=== PATIENT | male | born 1975 | race Caucasian/White ===

== ENCOUNTER 2016-06-17 08:29 | Emergency (ER) | payer OTHER ==
[2016-06-17] MEDS ORDERED: IOPAMIDOL 300 (61%) 150 ML VIAL IV ONE (08:30)
[2016-06-17] MEDS ORDERED: PREDNISONE 20 MG TABLET ONE (09:21)
[2016-06-17 09:37] LABS: ABSOLUTE NEUTROPHIL COUNT 5.4 K/mm3 (1.8-7.7); BASO # 0.1 K/mm3 (0.0-0.2); BASO % 1.3 % (0.2-1.0); EOS # 0.2 (0.0-0.5); EOS % 2.8 % (0.9-2.9); HEMATOCRIT 46.2 % (32.0-52.0); HEMOGLOBIN 15.4 gm/l (14.0-18.0); IMM NEUT # 0.1 K/mm3 (0-0.2); IMM NEUT% 0.6 % (0-1); LYMPH # 1.2 (1.0-4.8); LYMPH % 15.7 % (15-45); MEAN CELL VOLUME 87.3 fl (80.0-94.0); MEAN CORPUSCULAR HEMOGLOBIN 29.1 pg (27.0-31.0); MEAN CORPUSCULAR HGB CONC 33.3 g/dl (33.0-37.0); MEAN PLATELET VOLUME 9.2 fl (7.4-10.4); MONO # 0.9 (0.0-0.8); MONO % 11.8 % (4-12); NEUT % 67.8 % (43-75); PLATELET COUNT 311 K/mm3 (130-400); RED CELL DISTRIBUTION WIDTH 12.4 % (11.5-14.5)
[2016-06-17 09:59] LABS: CALCIUM 9.4 mg/dL (8.6-10.3)
--- NOTE | 2016-06-17 10:01 | CT ---
ABD/PELVIS W/ CON COMPARISON: CT abdomen with contrast 11/21/2010 HISTORY: 41-year-old male with mid/right back pain. Medical history: Inguinal hernia, chronic back pain. Surgical history: Abdomen fatty tumors removed, appendectomy, meniscectomy. Technique: No oral contrast. Intravenous injection 125 mL Isovue 300. Using a [employer] [address] scanner, images were obtained from the diaphragm to the floor the pelvis. An automated dose reduction technique was used to minimize patient radiation dose. Dose information: CTDIvol (mGy): 27.40 DLP(mGycm): 1448.30 FINDINGS: Lung bases: Normal. Inferior mediastinum and heart: Normal. Liver: Normal. Gallbladder:Normal. Bile ducts: Normal. Pancreas: Normal. Spleen: Normal. Adrenal glands: Normal. Kidneys: Normal. Ureters: Normal Urinary bladder: Normal. Prostate gland and seminal vesicles: Normal. Blood vessels: Normal Lymph nodes: Normal Stomach: Normal Duodenum: Normal Small intestine: Normal Appendix: Appendectomy. Colon: Normal Abdominal wall and supporting musculature: 5.5 x 2.2 cm left inguinal hernia containing fat. Bones: Minimal degenerative changes in the spine. No disc herniations. IMPRESSION: 1. No acute finding to explain the patient's mid and right-sided back pain. 2. Incidental findings include 5.5 x 2.2 cm left inguinal hernia containing fat, minimal degenerative changes in the spine, and appendectomy. The report was sent to the emergency department [employer] medical record system 06/17/2016 at 09:58
== END 2016-06-17 11:58 | disposition home or self-care (01) ==
LOC: ED 08:29
DX: M54.41 Lumbago with sciatica, right side (principal)
CPT/HCPCS: 85025; 80048; 74177; 99284 ×2; J7512; Q9967

== ENCOUNTER 2016-07-23 07:13 | Day surgery (SDC) | payer OTHER ==
[2016-07-23] MEDS ORDERED: MIDAZOLAM HCL 5 MG/5 ML VIAL ONE (07:22)
[2016-07-23] MEDS ORDERED: FENTANYL 250 MCG/5 ML AMP ONE (07:23)
[2016-07-23] MEDS ORDERED: LIDOCAINE Viscous 2% 15 ML UDCUP ONE (07:23)
[2016-07-23] MEDS ORDERED: FENTANYL 250 MCG/5 ML AMP IV PRN (07:38)
[2016-07-23] MEDS ORDERED: LIDOCAINE Viscous 2% 15 ML UDCUP PO PRN (07:38)
[2016-07-23] MEDS ORDERED: MIDAZOLAM HCL 5 MG/5 ML VIAL IV PRN (07:38)
[2016-07-23] MEDS ORDERED: LACTATED RINGERS 1,000 ML IV SCH (07:45)
[2016-07-23 12:34] LABS: HELICOBACTER PYLORII DETECTION NEGATIVE (NEGATIVE)
--- NOTE | 2016-07-25 10:57 | SURGPATH ---
[facility] [address] [place] [id number] Patient Name: FABIANA LOZADA MR#: [id number] : 1975 Gender: M Specimen #: [id number] Collected: 07/23/2016 Received: 07/24/2016 Reported: 07/25/2016 Submitting Phys: GRACE WATSON Copy To Phys: [facility] JARETH CARBAJAL Clinical History / Pre-Operative Diagnosis: DYSPHAGIA; HEARTBURN; RULE OUT GASTRITIS AND ESOPHAGITIS Specimen Source / Surgical Procedure Performed: #1-ANTRAL BIOPSY; #2-ESOPHAGEAL BIOPSY AT 38 CM Interpretation: 1. ANTRUM, BIOPSY: - NO PATHOLOGIC ABNORMALITY 2. ESOPHAGUS AT 38 CM, BIOPSY: - REFLUX ESOPHAGITIS - NEGATIVE FOR INTESTINAL METAPLASIA Electronically Signed Out Abdoul James M.D. Gross Description: #1 The specimen is received in a formalin filled container labeled with the patient's name and "antral biopsy". Two lemus biopsies are 0.4 and 0.5 cm. Totally embedded in cassette #1. #2 The specimen is received in a formalin filled container labeled with the patient's name and "esophageal biopsy at 38 cm". Two yates-lemus biopsies are each 0.5 cm. Totally embedded in cassette #2. Samuel Sanders PFatoumata. Microscopic Description: Microscopic performed. 1: 46270 2: 75820 K21.0
== END 2016-07-23 11:17 | disposition home or self-care (01) ==
LOC: SDC 07:13
PROVIDERS: ATTEND Internal Medicine Gastroenterology
PROC: 0D748ZZ Dilation of Esophagogastric Junction, Via Natural or Artificial Opening Endoscopic (ICD-10-PCS; principal; 2016-07-23)
PROC: 0DB68ZX Excision of Stomach, Via Natural or Artificial Opening Endoscopic, Diagnostic (ICD-10-PCS; 2016-07-23)
PROC: 0DB48ZX Excision of Esophagogastric Junction, Via Natural or Artificial Opening Endoscopic, Diagnostic (ICD-10-PCS; 2016-07-23)
DX: K22.2 Esophageal obstruction (principal); K21.0 Gastro-esophageal reflux disease with esophagitis; K29.70 Gastritis, unspecified, without bleeding; K29.80 Duodenitis without bleeding; I10 Essential (primary) hypertension; Z88.0 Allergy status to penicillin; Z88.8 Allergy status to other drugs, medicaments and biological substances
CPT/HCPCS: 43249; 43239; 87081; J3010; J2250; A9270

== ENCOUNTER 2016-08-27 07:15 | Day surgery (SDC) | payer OTHER ==
[~2016-08-27 07:15] MED LIST: IV START KIT ONE; LACTATED RINGERS 1,000 ML ONE
[2016-08-27] MEDS ORDERED: LIDOCAINE 2% (MULTI DOSE) 10 ML VIAL ONE (08:11)
[2016-08-27] MEDS ORDERED: MIDAZOLAM HCL 1 MG/ML 2ML VIAL ONE (08:11)
[2016-08-27] MEDS ORDERED: FENTANYL 250 MCG/5 ML AMP ONE (08:11)
[2016-08-27] MEDS ORDERED: PROPOFOL 20 ML IV ONE (08:11)
[2016-08-27] MEDS ORDERED: CEFAZOLIN SODIUM 1,000 MG VIAL ONE (09:19)
[2016-08-27] MEDS ORDERED: BUPIVACAINE 0.5% (PRES FREE) 30 ML VIAL ONE (09:19)
[2016-08-27] MEDS ORDERED: SODIUM CHLORIDE 0.9% FLUSH 10 ML ONE (09:19)
[2016-08-27] MEDS ORDERED: CLINDAMYCIN 900 MG PREMIX 50 ML IV ONE (09:22)
[2016-08-27] MEDS ORDERED: MEPERIDINE 25 MG/ML SYRINGE IV PRN (10:05)
[2016-08-27] MEDS ORDERED: PROMETHAZINE HCL 25 MG/ML VIAL IM PRN (10:05)
[2016-08-27] MEDS ORDERED: FENTANYL 100 MCG/2 ML VIAL IV PRN (10:05)
[2016-08-27] MEDS ORDERED: NALOXONE HCL 0.4 MG/ML VIAL IV PRN (10:05)
[2016-08-27] MEDS ORDERED: ONDANSETRON 4 MG/2ML 2 ML VIAL IV PRN ×2 (10:05→12:20)
[2016-08-27] MEDS ORDERED: ATROPINE SULFATE 0.4 MG/1 ML VIAL IV PRN (10:05)
[2016-08-27] MEDS ORDERED: HYDRALAZINE HCL 20 MG/1 ML VIAL IV PRN (10:05)
[2016-08-27] MEDS ORDERED: HYDROMORPHONE HCL 1 MG/ML SYRINGE IV PRN (10:05)
[2016-08-27] MEDS ORDERED: LABETALOL HCL 5 MG/ML 20ML VIAL IV PRN (10:05)
[2016-08-27] MEDS ORDERED: DEXAMETHASONE SOD PHOS 4 MG/1 ML VIAL ONE (10:07)
[2016-08-27] MEDS ORDERED: LACTATED RINGERS 1,000 ML IV SCH (10:15)
[2016-08-27] MEDS ORDERED: KETOROLAC TROMETHAMINE 30 MG/ML 1 ML VIAL ONE ×2 (10:47→10:48)
--- NOTE | 2016-08-27 12:15 | OP ---
David Page [id number] DATE OF PROCEDURE: 08/27/2016 PREOPERATIVE DIAGNOSIS: Left inguinal hernia with obstruction. POSTOPERATIVE DIAGNOSIS: Left inguinal hernia. with obstruction. PROCEDURE: Left inguinal hernia repair with mesh plug times two and patch. SURGEON: Phill Dale MD. LEARNING DESIGN SPECIALIST: Janene. ANESTHESIA: Kobzeff, General. INDICATION: This is a 41-year-old male who presents for elective repair of a left inguinal hernia. He has difficulty defecating. He is able to defecate once he reduces his hernia indicating obstruction caused by the hernia. DESCRIPTION: With informed consent he was taken to the operating room where he was laid supine on the operating room table. General endotracheal anesthesia was administered. The left groin was prepped and draped in the usual sterile fashion. Local anesthetic was administered in the skin and subcutaneous tissues. Incision was made. Electrocautery was used to divide the subcutaneous fat, this was quite deep. We put in a self retaining Weitlaner retractor. The external oblique was opened with a knife and Metzenbaum scissors in a fibrous splitting technique. Cord structures were encircled at the level of the pubic tubercle with a [place] drain. The ilioinguinal nerve was identified, carefully dissected free, and retracted inferiorly. There was a large cord lipoma, this was dissected free to the level of the internal ring, it was clamped, excised, and tied off with 2-0 Vicryl stick tie. I did not clearly see an indirect sac. There appeared to be a generalized direct defect present, this was scored with electrocautery getting into the preperitoneal plane. An extra large mesh plug was then placed, this was secured circumferentially with a 2-0 Vicryl. It did seem to still be weak superior to the cord. I put in a medium mesh plug in this place. The two plugs were secured together with Vicryl. This was also secured to the internal oblique with some 2-0 Vicryl. A flat piece of mesh was then placed across the floor of the canal. The medial aspect overlapped the pubic tubercle. A slit was cut laterally, this was placed around the cord structures and secured laterally with 2-0 Vicryl. This was placed beneath the external oblique. The wound was irrigated. We appeared to have adequate hemostasis. The external oblique was reapproximated with a running 2-0 Vicryl. Some additional local anesthetic was administered below the external oblique. Subcutaneous tissues were brought together with 3-0 Vicryl and the skin was closed with a running subcuticular 4-0 Monocryl. Mastisol and Steri-strips were placed. Sterile dressings were applied. He tolerated the procedure and was taken to the recovery room in stable condition. Note was made that needle, instrument, and lap counts were reported as correct at the time of closure. JOB: [id number] CC: Dr. Nancy Thomas
[2016-08-27] MEDS ORDERED: EPHEDRINE SULFATE UD SYR 25 MG 25 MG/5 ML SYRINGE IV ONE (12:16)
[2016-08-27] MEDS ORDERED: KETOROLAC TROMETHAMINE 30 MG/ML 1 ML VIAL IV PRN (12:20)
[2016-08-27] MEDS ORDERED: MORPHINE SULFATE 2 MG/ML SYRINGE IV PRN (12:20)
[2016-08-27] MEDS ORDERED: ACETAMINOPHEN 325 MG TABLET PO PRN (12:20)
[2016-08-27] MEDS ORDERED: OXYCODONE HCL 5 MG TABLET PO PRN (12:20)
[2016-08-27] MEDS ORDERED: OXYCODONE HCL 5 MG TABLET ONE (12:26)
[2016-08-27] MEDS ORDERED: MORPHINE SULFATE 4 MG/ML SYRINGE IV PRN (12:30)
[2016-08-27] MEDS ORDERED: MORPHINE SULFATE 10 MG/ML SYRINGE IV PRN (12:31)
--- NOTE | 2016-08-29 12:06 | SURGPATH ---
[facility] [address] [place] [id number] Patient Name: FABIANA LOZADA MR#: [id number] : 1975 Gender: M Specimen #: [id number] Collected: 08/27/2016 Received: 08/28/2016 Reported: 08/29/2016 Submitting Phys: YULIA MICHEL Copy To Phys: JARETH CARBAJAL [facility] Clinical History / Pre-Operative Diagnosis: Left inguinal hernia Specimen Source / Surgical Procedure Performed: Left spermatic cord lipoma Interpretation: LEFT SPERMATIC CORD LIPOMA, EXCISION: - LIPOMA Electronically Signed Out Abdoul James M.D. Gross Description: The specimen is received in formalin labeled with the patient's name and "left spermatic cord lipoma". The specimen consists of a 4.5 x 4.5 x 1.5 cm smoothly lobulated portion of fatty tissue consistent with a lipoma. [employer] sales representative JENNIFER Zhao Microscopic Description: Sections show mature adipose tissue. 1: 69835 D17.6
== END 2016-08-27 14:14 | disposition home or self-care (01) ==
LOC: SDC 07:15
PROVIDERS: ATTEND Surgery
PROC: 0YU60JZ Supplement Left Inguinal Region with Synthetic Substitute, Open Approach (ICD-10-PCS; principal; 2016-08-27)
DX: K40.30 Unilateral inguinal hernia, with obstruction, without gangrene, not specified as recurrent (principal); I10 Essential (primary) hypertension; G47.33 Obstructive sleep apnea (adult) (pediatric); F41.9 Anxiety disorder, unspecified; Z88.0 Allergy status to penicillin; Z88.8 Allergy status to other drugs, medicaments and biological substances